=== PATIENT | male | born 1965 | race Caucasian/White ===

== ENCOUNTER 2023-11-17 08:09 | Observation (INO) | payer BC ==
[~2023-11-17] VITALS: Ht 165.1 cm; Wt 84.8 kg
[2023-11-17] VITALS (24 sets, daily range): BP systolic 70–166; BP diastolic 43–98
[2023-11-17] MEDS ORDERED: ASPIRIN 81 MG/TAB PO ONE (08:20)
[2023-11-17] MEDS ORDERED: MORPHINE SULFATE 4 MG/ML VIAL IV ONE (08:20)
[2023-11-17] MEDS ORDERED: ONDANSETRON HCl 4 MG/2 ML SDV IV ONE ×2 (08:20→11:15)
[2023-11-17] MEDS ORDERED: CYMBALTA60 MG PO (08:27)
[2023-11-17] MEDS ORDERED: TAMSULOSIN0.4 MG PO (08:28)
[2023-11-17] MEDS ORDERED: LORTAB 1010 MG PO (08:28)
[2023-11-17 08:29] LABS: BASO% 0.7 % (0-3); EOS% 0.5 % (0-8); HEMATOCRIT 44.3 % (39.0-50.0); HEMOGLOBIN 14.9 g/dl (14.0-18.0); IMMATURE GRANULOCYTES 0.2 % (0.0-5.0); LYMPH% 13.7 % (15-41); MEAN CELL VOLUME 97.6 fL CALC (80.0-100.0); MEAN CORPUSCULAR HGB 32.8 pG CALC (26.0-32.0); MEAN CORPUSCULAR HGB CONC 33.6 g/dL CAL (32.0-36.0); MONO% 4.1 % (2-13); NEUT# 10.55 thou/uL (1.82-7.42); NEUT% 80.8 % (42-76); RED BLOOD COUNT 4.54 mill/uL (4.70-6.10); RED CELL DISTRI WIDTH 12.8 % (11.5-15.5)
[2023-11-17] MEDS ORDERED: PROTONIX40 M2 PO (08:29)
[2023-11-17] MEDS ORDERED: LEVOTHYROXIN75 MC1 PO (08:29)
[2023-11-17] MEDS ORDERED: EVEKEO10 MG PO (08:30)
[2023-11-17 08:46] LABS: ALBUMIN 4.5 g/dL (3.2-5.0); ALKALINE PHOSPHATASE 94 u/l (38-126); ANION GAP 11 (6-22 (CALC)); BILIRUBIN, TOTAL 0.6 mg/dL (0.2-1.3); BUN 11 mg/dL (9-20); BUN/CREATININE RATIO 15 (12-20 (CALC)); CARBON DIOXIDE 23 mmol/l (22-30); CHLORIDE 108 mmol/l (95-108); CREATININE 0.8 mg/dL (0.7-1.3); ESTIMATED GFR 101 ML/MIN (>=90 (CALC)); LIPASE 48 u/l (23-300); POTASSIUM 4.3 mmol/l (3.5-5.1); SGOT/AST 30 u/l (17-59); SODIUM 139 mmol/l (137-146); TOTAL PROTEIN 7.6 g/dL (6.3-8.2)
[2023-11-17] MEDS ORDERED: LIDOCAINE VISCOUS 2% 15 ML UDC PO ONE (09:40)
[2023-11-17] MEDS ORDERED: ALUM & MAG HYDROX-SIMETHICONE 30 ML PO ONE (09:40)
[2023-11-17] MEDS ORDERED: Pantoprazole Sodium 40 MG VIAL (Protonix) IV ONE ×2 (11:15→12:05)
[2023-11-17] MEDS ORDERED: SODIUM CHLORIDE 0.9% 1,000 ML IV ONE (11:20)
[2023-11-17] MEDS ORDERED: KETOROLAC TROMETHAMINE 30 MG/ML SDV IV ONE (11:50)
[2023-11-17] MEDS ORDERED: SODIUM CHLORIDE 0.9% 1,000 ML IV PRN (13:00)
[2023-11-17] MEDS ORDERED: MORPHINE SULFATE 4 MG/ML VIAL IV PRN (13:00)
[2023-11-17] MEDS ORDERED: ACETAMINOPHEN 325 MG/TAB PO PRN (13:00)
[2023-11-17] MEDS ORDERED: NITROGLYCERIN 0.4 MG/TAB SL PRN (13:00)
[2023-11-17] MEDS ORDERED: amLODIPine BESYLATE 2.5 MG/TAB PO SCH (13:00)
[2023-11-17] MEDS ORDERED: MAGNESIUM HYDROXIDE 30 ML UDC PO PRN (13:00)
[2023-11-17] MEDS ORDERED: ONDANSETRON HCl 4 MG/2 ML SDV IV PRN (13:05)
[2023-11-17] MEDS ORDERED: ATROPINE SULFATE 0.4 MG/ML IV PRN (13:20)
[2023-11-17] MEDS ORDERED: HYDROmorphone HCL 2 MG/AMP IV PRN (13:45)
[2023-11-17] MEDS ORDERED: LORazepam 2 MG/ML IV PRN (13:50)
[2023-11-17] MEDS ORDERED: IPRATROPIUM-Albuterol 0.5MG-2.5MG/3 ML NEB PRN (14:00)
[2023-11-17] MEDS ORDERED: HALOPERIDOL LACTATE 5 MG/ML SDV IV PRN (15:05)
[2023-11-17] MEDS ORDERED: ATROPINE SULFATE 0.1 MG/ML 10 ML SYR IV PRN (15:15)
[2023-11-17 15:56] LABS: URINE BLOOD DIPSTICK Negative (NEGATIVE); URINE GLUCOSE - DIPSTICK Negative (NEGATIVE); URINE KETONE 80 mg/dL (NEGATIVE); URINE LEUK ESTERASE Negative (NEGATIVE); URINE NITRITE - DIPSTICK Negative (Negative); URINE PROTEIN - DIPSTICK 30 mg/dL (NEG-TRACE); URINE UROBILINOGEN - DIPSTICK 0.2 E.U./dL (0.2)
[2023-11-17 15:57] LABS: URINE COLOR Yellow; URINE RBC 0-2 RBC/hpf (0-5); URINE WBC 0-2 WBC/hpf (0-5)
[2023-11-17] MEDS ORDERED: PIPERACILLIN Sodium-Tazobactam 3.375 GM in SODIUM CHLORIDE 0.9% 100 ML IV SCH (18:00)
[2023-11-17] MEDS ORDERED: ATORVASTATIN CALCIUM 40 MG/TAB PO SCH (21:00)
[2023-11-18] VITALS (8 sets, daily range): BP systolic 99–132; BP diastolic 45–69
[2023-11-18 05:29] LABS: BASO% 0.7 % (0-3); EOS% 1.8 % (0-8); HEMATOCRIT 38.7 % (39.0-50.0); HEMOGLOBIN 12.8 g/dl (14.0-18.0); IMMATURE GRANULOCYTES 0.2 % (0.0-5.0); LYMPH% 29.4 % (15-41); MEAN CELL VOLUME 99.5 fL CALC (80.0-100.0); MEAN CORPUSCULAR HGB 32.9 pG CALC (26.0-32.0); MEAN CORPUSCULAR HGB CONC 33.1 g/dL CAL (32.0-36.0); MONO% 8.8 % (2-13); NEUT# 6.83 thou/uL (1.82-7.42); NEUT% 59.1 % (42-76); RED BLOOD COUNT 3.89 mill/uL (4.70-6.10); RED CELL DISTRI WIDTH 13.2 % (11.5-15.5)
[2023-11-18 05:46] LABS: ALBUMIN 3.3 g/dL (3.2-5.0); BILIRUBIN, TOTAL 0.8 mg/dL (0.2-1.3); CHOLESTEROL HDL RATIO 4.3 (<4.4 (CALC)); CREATININE 0.9 mg/dL (0.7-1.3); POTASSIUM 4.2 mmol/l (3.5-5.1); TOTAL PROTEIN 5.6 g/dL (6.3-8.2)
[2023-11-18] MEDS ORDERED: LEVOTHYROXINE SODIUM 75 MCG/TAB PO SCH (06:00)
[2023-11-18] MEDS ORDERED: DULOXETINE HCl 30 MG/CAP PO SCH (09:00)
[2023-11-18] MEDS ORDERED: PROTONIX40 M2 PO (11:27)
== END 2023-11-18 12:17 | disposition home or self-care (01) | DRG 392 ==
LOC: ED 08:09 → ED-I 08:58 → ED 12:14 → MS2 12:15
PROVIDERS: Family Medicine; ADMIT Student in an Organized Health Care Education/Training Program; ATTEND Student in an Organized Health Care Education/Training Program
DX: R10.13 Epigastric pain (principal); R07.9 Chest pain, unspecified; R11.2 Nausea with vomiting, unspecified; R19.7 Diarrhea, unspecified; R06.02 Shortness of breath; R00.1 Bradycardia, unspecified; I10 Essential (primary) hypertension; K21.9 Gastro-esophageal reflux disease without esophagitis; E03.9 Hypothyroidism, unspecified; N40.0 Benign prostatic hyperplasia without lower urinary tract symptoms; R63.4 Abnormal weight loss; Z79.899 Other long term (current) drug therapy; Z87.11 Personal history of peptic ulcer disease; Z20.822 Contact with and (suspected) exposure to COVID-19
CPT/HCPCS: G0378; J2470; Q9967